=== PATIENT | female | born 1980 | race Caucasian/White ===

== ENCOUNTER → 2024-02-24 16:02 | Outpatient (REF) | payer BC, SELFPAY | LOC: RAD 16:02 | PROVIDERS: ATTENDING PHYSICIAN Nurse Practitioner Adult Health | DX: R19.00 Intra-abdominal and pelvic swelling, mass and lump, unspecified site (principal); R10.9 Unspecified abdominal pain; R14.0 Abdominal distension (gaseous); R11.0 Nausea | CPT/HCPCS: 74177; Q9967 ==

== ENCOUNTER 2024-06-09 06:31 | Day surgery (SDC) | payer BC, SELFPAY ==
[2024-06-09] VITALS (7 sets, daily range): BP systolic 107–144; BP diastolic 59–85
--- NOTE | 2024-06-09 09:17 | W.SUR.PREOP ---
Pre-Operative Surgical Note
-
I have examined this patient prior to the performance of the scheduled procedure.
The patient's condition is unchanged from the time of the current History and
Physical and the patient is able to undergo the scheduled procedure.
--- NOTE | 2024-06-09 09:18 | HP.FOC2 ---
Focused History & Physical
Chief Complaint
HPI:
Chief Complaint:
Umbilical hernia
HPI / Indication for Planned Procedure: This is a 44-year-old female with a symptomatic umbilical hernia
Relevant Past Medical History: Negative
Relevant Social History: Negative
Relevant Family History: Negative
Relevant Past Surgical History: Negative
Review of Systems
Review of Pertinent Systems: All Systems Negative
Medication
See Medication form for detailed medications: Yes
Medication List (including Herbals & OTC):
sertraline 50 mg tablet 50 mg PO DAILY 06/06/24
Medications Reviewed: Yes
Allergies and Reactions
Patient has Allergies: No
Noted Allergies and Reactions:
Allergy/AdvReac Type Severity Reaction Status Date / Time
No Known Allergies Allergy Verified 06/09/24 09:13
Pertinent Physical Exam
All Other Systems: Negative
Head/Neck: Normal
Abdomen: Other (Soft reducible umbilical hernia)
Diagnosis / Assessment
This is a 44-year-old female with a symptomatic umbilical hernia.
Plan / Procedure
Open umbilical hernia repair with mesh.
Anesthesia/Sedation to be done by Anesthesia Provider: Yes
[2024-06-09] MEDS: TYLENOL 1000 MG PO (09:23)
[2024-06-09] MEDS: NORMOSOL-R/PLASMALYTE-A 1000 IV (09:23)
--- NOTE | 2024-06-09 10:19 | W.IMMPOSTOP ---
Surgical Immed Post Op Note
-
Primary Surgeon: Tiago Cobos MD
Assisting Surgeon: None
Pre-op Diagnosis: Umbilical hernia
Post-op Diagnosis: Same
Procedure Performed: Open primary umbilical hernia repair
Anesthesia Type: MAC
Specimen / Cultures:
Estimated Blood Loss: 1 cc
Complications: None
Operative Findings:0.5 cm umbilical hernia containing preperitoneal fat that was ligated/removed. Hernia defect closed with a running 0 PDS suture. No mesh used.
--- NOTE | 2024-06-09 10:22 | OR.RPT ---
Operative Report
Operative Report
Patient Name: Eri Falk
: 1980
Date of Operation: 06/09/2024
Preoperative Diagnosis: Umbilical hernia
Postoperative Diagnosis: Same
Procedure(s):
Open primary umbilical hernia repair
Surgeon(s):
Dr. Cobos
Structural Biologist(s):
MATEO Rich
Anesthesia: MAC
Estimated Blood Loss: 1 cc
Urine Output: None
Drains/Lines/Implants: None
Specimens: Umbilical hernia contents
Indication for surgery:
The patient has a symptomatic umbilical hernia. After discussion of risk benefits and a review of their therapeutic options, they elected to pursue open repair.
Operative findings:
0.5 cm defect containing preperitoneal fat that was ligated and removed. Defect closed with a running 0 PDS suture.
Details of the operation:
After successful induction of anesthesia, the patient was prepped and draped in the supine position. A team timeout was performed confirming administration of IV antibiotics and appropriate DVT prophylaxis . The skin was anesthestized with 0.25%
Marcaine and an infraumbilical incision was made and dissection carried down to the fascia. The hernia sac was then encircled and carefully dissected off of the umbilical stalk and ligated and removed. The defect measured0.5 cm so the decision was
made not to use mesh. The defect was closed with a running 0 PDS suture. The umbilical stalk was then tacked down to the fascia with a 3-0 Vicryl suture. The dermis was then approximated with interrupted 3-0 Vicryl sutures followed by Dermabond.
Once the glue had dried, we placed a folded up piece of gauze into the umbilicus and covered it with a large Tegaderm dressing and then suctioned out the gauze to create a vacuum dressing to help obliterate the space. The patient returned to
the Recovery Room in stable condition. Sponge and instrument counts were correct. 1 specimen was sent to Pathology.
I was the attending physician and performed the procedure with assistance from the PA above. The assistance of MATEO Rich was required due to the complexity of the procedure. During the procedure Chata assisted with retraction, resection, and
closure of the wound. I was present for all portions of the case.
Tiago Cobos MD
== END 2024-06-09 11:14 | disposition home or self-care (01) ==
LOC: SDS 06:31
PROVIDERS: ATTENDING PHYSICIAN Surgery
DX: K42.9 Umbilical hernia without obstruction or gangrene (principal)
CPT/HCPCS: 49591; 88302

== ENCOUNTER → 2025-06-22 12:44 | Outpatient (REF) | payer BC, SELFPAY | LOC: HWWDC 12:44 | PROVIDERS: ATTENDING PHYSICIAN Nurse Practitioner Adult Health | DX: Z12.31 Encounter for screening mammogram for malignant neoplasm of breast (principal) | CPT/HCPCS: 77063; 77067 ==